=== PATIENT | male | born 1965 | race Caucasian/White ===

== ENCOUNTER → 2017-02-22 | Outpatient (CLI) | payer OTHER, MEDICAID ==
[2016-02-04 10:33] VITALS: BP 131/93
[~2017-02-22] MED LIST: ACET500T33 PO; CIPR500T PO; CIPR500T94 PO; GADOBUTROL 7.5 MMOL/7.5 ML VIAL IV ONE; METR500T PO
--- NOTE | 2017-02-22 14:17 | RAD ---
PROCEDURE MRI brain without and with contrast. HISTORY Lower extremity weakness, legs giving out TECHNIQUE Multiplanar, multi sequential pre and post contrast MR imaging was performed of the brain. Contrast: 14 cc Gadavist COMPARISON None FINDINGS There is some motion degradation. There is no evidence of recent infarct or cytotoxic edema. There is no intra-axial mass effect, midline shift, extra-axial fluid collection, nodular parenchymal or leptomeningeal enhancement. Ventricles, sulci, cisterns are within normal limits in size and configuration. There is asymmetric, confluent T2 and FLAIR hyperintense signal abnormality of the right temporal lobe which extends to the medial aspect of the temporal lobe, not associated with significant enhancement. This in greatest overall dimension measures approximately 4 cm AP by 0.6 cm cc by approximately 1.5 cm transverse. Otherwise there is no significant other focal signal abnormality of the brain parenchyma. There is no significant hemosiderin deposition of the brain parenchyma. Focus of signal change of the left basal ganglia is more likely due to prominent perivascular space rather than old lacunar infarct. There is negligible frontal sinus mucosal thickening, very minimal bilateral ethmoid air cell and left maxillary sinus mucosal thickening. There is moderate to severe right maxillary sinus mucosal thickening. Mastoid air cells are aerated. There is preservation of the major arterial intracranial flow voids at the skull base. IMPRESSION 1. There is more confluent, abnormal, nonenhancing signal abnormality of the right temporal lobe. While an inflammatory demyelinating disease would be a possibility, pattern would be less typical. Low-grade astrocytoma is in the differential considerations. There is no significant enhancement or hemorrhage as more commonly associated with herpes encephalitis. Unilateral involvement also makes limbic encephalitis less likely consideration. 2. There is paranasal sinus mucosal thickening as stated greatest of the right maxillary sinus. Electronically signed by: Sunny Portillo MD (Feb 22, 2017 14:16:12)
== END | disposition home or self-care (01) ==
LOC: MRI 12:24
PROVIDERS: ATTEND Family Medicine
DX: G35 Multiple sclerosis (principal); R29.898 Other symptoms and signs involving the musculoskeletal system; Z86.69 Personal history of other diseases of the nervous system and sense organs; J01.00 Acute maxillary sinusitis, unspecified
CPT/HCPCS: 70553; A9585

== ENCOUNTER → 2017-03-20 | Outpatient (CLI) | payer OTHER ==
[2016-02-04 10:33] VITALS: BP 131/93
[~2017-03-20] MED LIST changes: -GADOBUTROL 7.5 MMOL/7.5 ML VIAL IV ONE
[2017-03-20 14:51] LABS: BASO # 0.1 x10^3/uL (0.0-0.2); BASO % 1 % (0-3); EOS % 3 % (0-3); HEMATOCRIT 45.7 % (39.0-53.0); HEMOGLOBIN 15.9 g/dL (13.0-17.5); LYMPH # 2.3 x10^3/uL (1.0-4.8); LYMPH % 25 % (24-48); MEAN CORPUSCULAR HEMOGLOBIN 31 pg (25-35); MEAN CORPUSCULAR HGB CONC 35 g/dL (31-37); MEAN CORPUSCULAR VOLUME 88 fL (79-100); MONO % 13 % (0-9); NEUT % 58 % (31-73); PLATELET COUNT 275 x10^3/uL (140-400); RED BLOOD COUNT 5.21 x10^6/uL (4.30-5.70); RED CELL DISTRIBUTION WIDTH 12.9 % (11.5-14.5); WHITE BLOOD COUNT 9.3 x10^3/uL (4.0-11.0)
[2017-03-20 15:01] LABS: INR 1.1 (0.8-1.1); PROTHROMBIN TIME PATIENT 13.5 SEC (11.7-14.0)
[2017-03-20 15:05] LABS: CREATININE 1.1 mg/dL (0.7-1.3); GFR 70.6
== END | disposition home or self-care (01) ==
LOC: LAB 14:34
PROVIDERS: ATTEND Psychiatry & Neurology Neurology
DX: G35 Multiple sclerosis (principal)
CPT/HCPCS: 36415; 82550; 82565; 82607; 84520; 85027; 85610

== ENCOUNTER → 2017-03-27 | Outpatient (CLI) | payer OTHER ==
[2016-02-04 10:33] VITALS: BP 131/93
[~2017-03-27] MED LIST changes: +GADOBUTROL 7.5 MMOL/7.5 ML VIAL IV ONE
--- NOTE | 2017-03-27 14:49 | KCIC ---
PROCEDURE MRI cervical spine without and with contrast. HISTORY Multiple sclerosis, weakness of the bilateral legs, falls TECHNIQUE Multiplanar, multi sequential pre and post contrast MR imaging was performed of the cervical spine. Contrast: 13 cc Gadavist COMPARISON None FINDINGS There is mild motion degradation. Cervical cord caliber is within normal limits, no defined or expansile signal abnormality identified. There is no enhancement of the cervical cord or within the intervertebral disc spaces. Cervical vertebral body stature and AP alignment are adequate. Intervertebral disc spaces are adequate. Tiny focus of marrow signal change of the inferior right C6 endplate could be due to sequela of a small hemangioma or slightly edematous Schmorl's node. C2-3: Neural foramina and spinal canal are adequate. C3-4: Neural foramina and spinal canal are adequate. C4-5: There is mild facet hypertrophic change on the right. Neural foramina and spinal canal are adequate. C5-6: Spinal canal and the neural foramina are adequate. C6-7: Neural foramina spinal canal are adequate C7-T1: Neural foramina spinal canal are adequate IMPRESSION 1. There is no significant cervical cord signal abnormality, no enhancement of the cervical cord. There is no cervical spinal stenosis or neural foramina compromise. Electronically signed by: Sunny Portillo MD (March 27, 2017 14:47:44)
== END | disposition home or self-care (01) ==
LOC: KCIC MRI 13:38
PROVIDERS: ATTEND Psychiatry & Neurology Neurology
DX: G35 Multiple sclerosis (principal); M62.81 Muscle weakness (generalized)
CPT/HCPCS: 72156; A9585

== ENCOUNTER 2019-09-08 14:27 | Emergency (ER) | payer OTHER ==
[~2019-09-08] VITALS: Ht 182.9 cm; Wt 124.7 kg
[~2019-09-08 14:27] MED LIST changes: -GADOBUTROL 7.5 MMOL/7.5 ML VIAL IV ONE
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
[2019-09-08] MEDS ORDERED: KETOROLAC 60 MG/2 ML VIAL. IM ONE (16:00)
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
[2019-09-08 16:30] VITALS: BP 145/79
[2019-09-08] MEDS ORDERED: CYCL10TA2 PO (16:36)
[2019-09-08] MEDS ORDERED: HYDR-3164 PO (16:36)
== END 2019-09-08 16:44 | disposition home or self-care (01) ==
LOC: ER 14:27
DX: M25.512 Pain in left shoulder (principal); M54.2 Cervicalgia; G89.11 Acute pain due to trauma; M48.061 Spinal stenosis, lumbar region without neurogenic claudication; M54.6 Pain in thoracic spine; V49.49XA Driver injured in collision with other motor vehicles in traffic accident, initial encounter; Y93.89 Activity, other specified; Y92.488 Other paved roadways as the place of occurrence of the external cause; Y99.8 Other external cause status
CPT/HCPCS: 71045; 72125; 72128; 72131; 73030; 96372; 99284; J1885